=== PATIENT | male | born 1975 | race Caucasian/White ===

== ENCOUNTER 2018-02-27 11:07 | Emergency (ER) | payer BC, OTHER ==
--- NOTE | 2018-02-27 11:36 | ED ---
General Adult HPI - General Chief complaint: Upper Respiratory Infection Stated complaint: poss pneumonia Time Seen by Provider: 02/27/18 11:23 Source: patient, RN notes reviewed Mode of arrival: ambulatory Limitations: no limitations - History of Present Illness Initial comments: Patient 43-year-old male presenting to the emergency room today with a chief complaint of cough congestion over the last week. Patient does admit to positive sputum production it's been waiting color. Patient does admit that he was running a fever a few days ago. Patient denies any other complaints or symptoms. Being daily smoker. Patient denies any recent fever, chills, shortness of breath, chest pain, back pain, abdominal pain, nausea or vomiting, numbness or tingling, headaches or visual changes, or any other complaints. - Related Data Home Medications Medication Instructions Recorded Confirmed Lisinopril [Zestril] 10 mg PO DAILY 04/19/16 02/27/18 Ibuprofen [Advil] 600 mg PO Q6HR PRN 02/27/18 02/27/18 Previous Rx's Medication Instructions Recorded Cephalexin [Keflex] 500 mg PO Q12HR 10 Days cap 02/27/18 Allergies Allergy/AdvReac Type Severity Reaction Status Date / Time No Known Allergies Allergy Verified 02/27/18 12:10 Review of Systems ROS Statement: Those systems with pertinent positive or pertinent negative responses have been documented in the HPI. ROS Other: All systems not noted in ROS Statement are negative. Past Medical History Past Medical History: Hypertension History of Any Multi-Drug Resistant Organisms: None Reported Past Surgical History: No Surgical Hx Reported Past Psychological History: No Psychological Hx Reported Smoking Status: Current every day smoker Past Alcohol Use History: None Reported Past Drug Use History: None Reported General Exam - General Exam Comments Initial Comments: General: The patient is awake and alert, in no distress, and does not appear acutely ill. Eye: Pupils are equal, round and reactive to light, extra-ocular movements are intact. No nystagmus. There is normal conjunctiva bilaterally. No signs of icterus. Ears, nose, mouth and throat: There are moist mucous membranes and no oral lesions. Neck: The neck is supple, there is no tenderness or JVD. Cardiovascular: There is a regular rate and rhythm. No murmur, rub or gallop is appreciated. Respiratory: Lungs are clear to auscultation, respirations are non-labored, breath sounds are equal. No wheezes, stridor, rales, or rhonchi. Musculoskeletal: Normal ROM, no tenderness. Strength 5/5. Sensation intact. Pulses equal bilaterally 2+. Neurological: A&O x 3. CN II-XII intact, There are no obvious motor or sensory deficits. Coordination appears grossly intact. Speech is normal. Skin: Skin is warm and dry and no rashes or lesions are noted. Psychiatric: Cooperative, appropriate mood & affect, normal judgment. Limitations: no limitations Course Vital Signs 02/27/18 11:19 Temperature 98.3 F Pulse Rate 90 Respiratory 20 Rate Blood Pressure 142/87 O2 Sat by Pulse 97 Oximetry Medical Decision Making - Medical Decision Making Patient's chest x-ray reviewed does show peribronchial cuffing. Patient be treated for bronchitis infection. Patient given dose of steroids in the emergency room. Discharged home on antibiotics. Patient states is not having any money to pay for prescription. Will be given a prescription of Keflex which she is advised is a free prescription at [facility]. Disposition Clinical Impression: Acute bronchitis Disposition: HOME SELF-CARE Condition: Good Instructions: Acute Bronchitis (ED) Additional Instructions: Please use medication as discussed. Please follow-up with family doctor in the next 2 days of symptoms have not improved. Please return to emergency room if the symptoms increase or worsen or for any other concerns. Prescriptions: Cephalexin [Keflex] 500 mg PO Q12HR 10 Days cap Is patient prescribed a controlled substance at d/c from ED?: No Referrals: Marybeth Maya MD [Primary Care Provider] - 1-2 days Time of Disposition: 12:32
--- NOTE | 2018-02-27 12:00 | XR ---
EXAMINATION TYPE: XR chest 2V DATE OF EXAM: 02/27/2018 COMPARISON: NONE HISTORY: Cough and congestion for 10 days TECHNIQUE: Frontal and lateral views of the chest are obtained. FINDINGS: Mild peribronchial cuffing is identified centrally. There is no focal air space opacity, pl eural effusion, or pneumothorax seen. The cardiac silhouette size is within normal limits. The oss eous structures are intact. IMPRESSION: Minimal peribronchial cuffing may relate to reactive or infectious airway disease. No fo raffi consolidation to suggest pneumonia.
[2018-02-27] MEDS ORDERED: DEXAMETHASONE SOD PHOSPHATE 10 MG/ML 1 ML VIAL IM STA (12:30)
[2018-02-27 12:46] VITALS: BP 143/83; PULSE 83; RESP 16; TEMP 97.9
== END 2018-02-27 12:46 | disposition home or self-care (01) ==
LOC: EC 11:07
DX: J20.9 Acute bronchitis, unspecified (principal); I10 Essential (primary) hypertension; F17.200 Nicotine dependence, unspecified, uncomplicated; Z79.899 Other long term (current) drug therapy
CPT/HCPCS: 71046; 99283; 96372; J1100